=== PATIENT | female | born 1985 | race Caucasian/White ===

== ENCOUNTER → 2017-09-05 | Outpatient (REF) | payer OTHER | LOC: M SFHCLERA 16:54 | DX: R35.0 Frequency of micturition (principal) ==

== ENCOUNTER → 2018-09-20 | Outpatient (REF) | payer OTHER ==
[2018-09-20 21:50] LABS: CHLAMYDIA DNA AMPLIFICATION NEGATIVE (NEGATIVE); GC DNA AMPLIFICATION NEGATIVE (NEGATIVE)
== END ==
LOC: M SFHCLERA 18:56
PROVIDERS: ATTEND Nurse Practitioner Family
DX: R30.0 Dysuria (principal)

== ENCOUNTER → 2018-10-24 | Outpatient (REF) | payer OTHER ==
[2018-10-25 12:55] LABS: CHLAMYDIA DNA AMPLIFICATION NEGATIVE (NEGATIVE); GC DNA AMPLIFICATION NEGATIVE (NEGATIVE)
== END ==
LOC: M SFHCLERA 10:34
PROVIDERS: ATTEND Nurse Practitioner Family
DX: R30.0 Dysuria (principal)
CPT/HCPCS: 81002; 81025; 87088; 87186; 87661; G0463

== ENCOUNTER → 2018-11-29 | Outpatient (REF) | payer OTHER ==
[2018-11-29 19:18] LABS: APPEARANCE, URINE CLEAR (CLEAR); BACTERIA, URINE AUTO 1+ (NEGATIVE); BILIRUBIN, URINE AUTO NEGATIVE (NEGATIVE); BLOOD, URINE BLOOD 1+ (NEGATIVE); COLOR, URINE STRAW (YELLOW); GLUCOSE, URINE (UA) AUTO NEGATIVE (NEGATIVE); KETONE, URINE AUTO NEGATIVE (NEGATIVE); LEUKOCYTE ESTERASE, URINE AUTO NEGATIVE (NEGATIVE); NITRITE, URINE AUTO NEGATIVE (NEGATIVE); PROTEIN, URINE AUTO NEGATIVE (NEGATIVE); RBC, URINE AUTO 1 /HPF (0-3); SQUAMOUS EPITHELIAL CELL UR AU 3 /HPF (0-6); UROBILINOGEN, URINE AUTO 0.2 mg/dL (0.0-2.0); WBC, URINE AUTO 0 /HPF (0-3)
== END ==
LOC: M LAB REF 16:21
PROVIDERS: ATTEND Obstetrics & Gynecology
DX: Z87.440 Personal history of urinary (tract) infections (principal)

== ENCOUNTER → 2018-12-19 | Outpatient (REF) | payer OTHER | LOC: M LAB REF 17:09 | PROVIDERS: ATTEND Internal Medicine Nephrology | DX: N18.3 Chronic kidney disease, stage 3 (moderate) (principal) ==

== ENCOUNTER → 2018-12-26 | Outpatient (CLI) | payer OTHER ==
--- NOTE | 2018-12-27 06:00 | REP ---
Clinical: Chronic medical renal disease. Technique: Real time oropeza scale ultrasound examination using curved array transducer. Findings: Bladder is relatively normal in appearance without wall thickening or mass lesion. Bilateral ureteral jets noted. Prevoid bladder measures 10.1 x 7.3 x 5.3 cm (255 ml). Postvoid bladder measures 4.9 x 4.1 x 2.7 cm (35 ml). Postvoid residual equals 14%. Impression: Postvoid residual volume equals 14%. Electronically Signed by Paulino Treadwell MD 12/27/2018 05:51 A
--- NOTE | 2018-12-27 06:20 | REP ---
Clinical: Chronic medical renal disease stage III. Technique: Real time oropeza scale ultrasound examination using curved array transducer. Findings: Right kidney appears mildly atrophic and measures 9.0 x 4.4 x 3.9 cm to 0.0 cm and 2.3 cm upper pole cysts. No hydronephrosis, obvious nephrolithiasis or mass lesion. Left kidney measures 11.0 x 5.5 x 6.1 cm and includes 2.7 cm, 3.0 cm, and 2.5 cm cortical cysts. No hydronephrosis, obvious nephrolithiasis, or mass lesion. Impression: Evidence for chronic medical renal disease including atrophic appearance to the right kidney with bilateral cortical thinning and cystic changes. Electronically Signed by Paulino Treadwell MD 12/27/2018 06:12 A
== END ==
LOC: M RAD 09:05
PROVIDERS: ATTEND Internal Medicine Nephrology
DX: N18.3 Chronic kidney disease, stage 3 (moderate) (principal); I12.9 Hypertensive chronic kidney disease with stage 1 through stage 4 chronic kidney disease, or unspecified chronic kidney disease; Z87.440 Personal history of urinary (tract) infections

== ENCOUNTER → 2019-05-15 | Outpatient (REF) | payer OTHER | LOC: M LAB REF 13:22 | PROVIDERS: ATTEND Nurse Practitioner Family | DX: N39.0 Urinary tract infection, site not specified (principal) ==

== ENCOUNTER → 2019-07-24 | Outpatient (REF) | payer OTHER | LOC: M LAB REF 16:54 | PROVIDERS: ATTEND Internal Medicine Nephrology | DX: N28.1 Cyst of kidney, acquired (principal); N18.3 Chronic kidney disease, stage 3 (moderate); Z68.43 Body mass index [BMI] 50.0-59.9, adult ==